=== PATIENT | male | born 1995 | race African-American/Black ===

== ENCOUNTER 2018-02-03 20:09 | Emergency (ER) | payer SELFPAY ==
[2018-02-03 20:18] VITALS: RESP 18
[2018-02-03] MEDS ORDERED: ACETAMINOPHEN TAB 500 MG TAB PO STA (20:27)
--- NOTE | 2018-02-03 20:33 | ED ---
URI HPI - General Chief Complaint: Upper Respiratory Infection Stated Complaint: lightheaded/fever/sore throat Time Seen by Provider: 02/03/18 20:20 Source: patient, RN notes reviewed Mode of arrival: ambulatory Limitations: no limitations - History of Present Illness Initial Comments: This is a 22-year-old male who presents to the emergency department with chief complaint of sore throat and fever. Patient states that he has been feeling feverish since Thursday. He states that his throat feels dry. He also admits to a nonproductive cough and chills. Patient states he is a current every day smoker. Denies any medical problems, current medications or allergies to medications. Denies chest pain or shortness of breath, dysuria or hematuria, diarrhea or constipation. - Related Data Home Medications Medication Instructions Recorded Confirmed No Known Home Medications [No 02/03/18 02/03/18 Known Home Medications] Allergies Allergy/AdvReac Type Severity Reaction Status Date / Time No Known Allergies Allergy Verified 02/03/18 20:57 Review of Systems ROS Statement: Those systems with pertinent positive or pertinent negative responses have been documented in the HPI. ROS Other: All systems not noted in ROS Statement are negative. Past Medical History Past Medical History: No Reported History History of Any Multi-Drug Resistant Organisms: None Reported Past Surgical History: Orthopedic Surgery Past Psychological History: No Psychological Hx Reported Smoking Status: Current every day smoker Past Alcohol Use History: Rare Past Drug Use History: Marijuana General Exam - General Exam Comments Initial Comments: General: Awake and alert, well-developed; in no apparent distress. Low-grade temperature at 100.1. Resting comfortably on ED stretcher. HEENT: Head atraumatic, normocephalic. Pupils are equal, round and reactive to light. Extraocular movements intact. Oropharynx moist with mild erythema. No tonsillar enlargement or exudates noted. Neck: Supple. Normal ROM. Cardiovascular: Regular rate and rhythm. No murmurs, rubs or gallops. Chest symmetrical. Respiratory: Lungs clear to auscultation bilaterally. No wheezes, rales or rhonchi. Normal respiratory effort with no use of accessory muscles. Musculoskeletal: Normal ROM, no tenderness bilateral upper and lower extremities. Ambulating normally. Skin: [place], warm and dry without rashes or lesions. Neurological: Alert and oriented x3. CN II-XII grossly intact. Speech is fluent and answers are appropriate. No focal neuro deficits. Psychiatric: Normal mood and affect. No overt signs of depression or anxiety noted. Limitations: no limitations Course Vital Signs 02/03/18 20:16 Temperature 100.1 F H Pulse Rate 111 H Respiratory 18 Rate Blood Pressure 145/95 O2 Sat by Pulse 97 Oximetry Medical Decision Making - Medical Decision Making This is a 22-year-old male who presented to the emergency department for evaluation of fever and sore throat. On presentation, patient had a low-grade temperature 100.1 with a heart rate of 111. Given tylenol. Patient was tested for influenza and strep and both were negative. A chest x-ray was obtained which also revealed no acute abnormalities. Patient vital signs are stable and he is in no acute distress. Likely suffering from a viral upper respiratory infection. Patient will be discharged home with her condition to follow-up with his primary care provider. Recommended rest, increase fluid intake and supportive care. Patient is in agreement with plan and voices understanding. All questions were answered. - Lab Data Lab Results 02/03/18 02/03/18 Range/Units 20:18 20:18 Influenza Type A RNA Not Detected (Not Detectd) Influenza Type B (PCR) Not Detected (Not Detectd) Group A Strep Rapid Negative (Negative) - Radiology Data Radiology results: report reviewed Chest x-ray impression: No acute process. Disposition Clinical Impression: Upper respiratory infection Disposition: HOME SELF-CARE Condition: Good Instructions: Upper Respiratory Infection (ED) Additional Instructions: Please rest and increase fluid intake. Please follow up with primary care provider within 1-2 days. Return to emergency department if symptoms should worsen or any concerns arise. Referrals: None,Stated [Primary Care Provider] - 1-2 days Time of Disposition: 21:35
--- NOTE | 2018-02-03 21:24 | XR ---
EXAMINATION: XR chest 2V DATE AND TIME: 02/03/2018 8:38 PM ORDERING PROVIDER: Jasmin Salinas CLINICAL INDICATION: cough and fever TECHNIQUE: PA and lateral COMPARISON: None. DESCRIPTION: The lungs are clear. The pleural spaces are negative. The cardiac silhouette is not enlarged. The mediastinal and pleural silhouettes are unremarkable. The skeletal structures are intact without focal findings. The overlying soft tissues are prominent.. IMPRESSION: NO ACUTE PROCESS.
[2018-02-03 21:59] VITALS: BP 157/69; PULSE 68; TEMP 99
== END 2018-02-03 21:59 | disposition home or self-care (01) ==
LOC: EC 20:09
DX: J06.9 Acute upper respiratory infection, unspecified (principal); F17.200 Nicotine dependence, unspecified, uncomplicated
CPT/HCPCS: 71046; 87081; 87430; 87502; 99283

== ENCOUNTER 2019-07-31 20:50 | Emergency (ER) | payer OTHER ==
[2019-07-31 20:54] VITALS: TEMP 99.1
--- NOTE | 2019-07-31 21:22 | XR ---
EXAMINATION TYPE: XR chest 2V DATE OF EXAM: 07/31/2019 COMPARISON: Chest x-ray February 03, 2018 HISTORY: Copy congestion for one week. TECHNIQUE: Frontal and lateral views of the chest are obtained. FINDINGS: Some elevation and eventration anterior aspect right hemidiaphragm is noted. There is no fo mateusz air space opacity, pleural effusion, or pneumothorax seen. The cardiac silhouette size is within normal limits. The osseous structures are intact. IMPRESSION: No suspicious acute infiltrate.
[2019-07-31 21:30] VITALS: BP 171/80; PULSE 86; RESP 18
--- NOTE | 2019-07-31 21:35 | ED ---
General Adult HPI - General Chief complaint: Upper Respiratory Infection Stated complaint: Cough Time Seen by Provider: 07/31/19 20:56 Source: patient, RN notes reviewed Mode of arrival: ambulatory Limitations: no limitations - History of Present Illness Initial comments: 24-year-old male without any past medical history presents to the emergency department specifically for a work note. Patient has had a cough for about a week. States he had a fever earlier today. Patient denies history of asthma. Denies any shortness of breath or chest pain. Does admit to mild congestion, denies sore throat. Patient states he did not go to work today and his work is making him get a note. Patient has no other complaints at this time including shortness of breath, chest pain, abdominal pain, nausea or vomiting, headache, or visual changes. - Related Data Previous Rx's Medication Instructions Recorded Azithromycin [Zithromax Z-pack] 250 mg PO DIRECTED #6 tab 07/31/19 Allergies Allergy/AdvReac Type Severity Reaction Status Date / Time No Known Allergies Allergy Verified 07/31/19 20:54 Review of Systems ROS Statement: Those systems with pertinent positive or pertinent negative responses have been documented in the HPI. ROS Other: All systems not noted in ROS Statement are negative. Past Medical History Past Medical History: No Reported History History of Any Multi-Drug Resistant Organisms: None Reported Past Surgical History: Orthopedic Surgery Past Psychological History: No Psychological Hx Reported Smoking Status: Current every day smoker Past Alcohol Use History: Rare Past Drug Use History: Marijuana General Exam Limitations: no limitations General appearance: alert, in no apparent distress Head exam: Present: atraumatic, normocephalic, normal inspection Eye exam: Present: normal appearance, PERRL, EOMI. Absent: scleral icterus, conjunctival injection, periorbital swelling ENT exam: Present: normal exam, normal oropharynx, mucous membranes moist, TM's normal bilaterally, normal external ear exam Neck exam: Present: normal inspection, full ROM. Absent: tenderness, meningismus, lymphadenopathy Respiratory exam: Present: normal lung sounds bilaterally. Absent: respiratory distress, wheezes, rales, rhonchi, stridor Cardiovascular Exam: Present: regular rate, normal rhythm, normal heart sounds. Absent: systolic murmur, diastolic murmur, rubs, gallop, clicks Neurological exam: Present: alert Course Vital Signs 07/31/19 07/31/19 20:51 21:30 Temperature 99.1 F Pulse Rate 95 86 Respiratory 20 18 Rate Blood Pressure 189/103 171/80 O2 Sat by Pulse 99 96 Oximetry Procedures - Smoking Cessation Time Spent Discussing Smoking Cessation w/Patient (Minutes): 3 Patient Acknowledges Need for Cessation: Yes Medical Decision Making - Medical Decision Making 24-year-old male presents for cough. Patient has had a cough for about a week. Subjective fevers earlier today. No sore throat but does admit to mild congestion. Patient presents specifically for a work note. Exam is unremarkable. Vitals are stable although patient initially hypertensive. This was repeated and improved however patient will follow up with primary care about this. No history of asthma. Chest x-ray negative for pneumonia. However given the symptom duration greater than one week with subjective fevers he will be treated for atypical pneumonia with azithromycin. He will return if he has any worsening symptoms. Disposition Clinical Impression: Cough Disposition: HOME SELF-CARE Condition: Good Instructions (If sedation given, give patient instructions): Upper Respiratory Infection (ED) Additional Instructions: Please take him back as directed. Please follow-up with primary care in 1-2 days. Return to the emergency department if you have any worsening symptoms. Prescriptions: Azithromycin [Zithromax Z-pack] 250 mg PO DIRECTED #6 tab Is patient prescribed a controlled substance at d/c from ED?: No Referrals: Frederic Whittington MD [REFERRING] - 1-2 days Time of Disposition: 21:34
== END 2019-07-31 21:42 | disposition home or self-care (01) ==
LOC: EC 20:50
DX: R05 Cough (principal); R50.9 Fever, unspecified; F17.200 Nicotine dependence, unspecified, uncomplicated; Z71.6 Tobacco abuse counseling
CPT/HCPCS: 71046; 99283

== ENCOUNTER 2019-08-26 22:59 | Emergency (ER) | payer OTHER ==
[2019-08-26] MEDS ORDERED: MORPHINE SULFATE 4 MG/ML SYRINGE IV STA (23:39)
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
[2019-08-27 00:03] LABS: Basophils # (A) 0.1 k/uL (0-0.2); Basophils % (A) 1 %; Eosinophils # (A) 0.2 k/uL (0-0.7); Eosinophils % (A) 2 %; HCT 47.7 % (39.0-53.0); HGB 14.7 gm/dL (13.0-17.5); Lymphocytes # (A) 2.4 k/uL (1.0-4.8); Lymphocytes % (A) 28 %; MCH 27.5 pg (25.0-35.0); MCHC 30.8 g/dL (31.0-37.0); MCV 89.5 fL (80.0-100.0); Mean Platelet Volume 6.1; Monocytes # (A) 0.6 k/uL (0-1.0); Monocytes % (A) 7 %; Neutrophils % (A) 59 %; Platelet Count 257 k/uL (150-450); RBC 5.33 m/uL (4.30-5.90); RDW 13.5 % (11.5-15.5); WBC 8.6 k/uL (3.8-10.6)
[2019-08-27 00:12] LABS: ALT 48 U/L (21-72); AST 51 U/L (17-59); African American GFR (CKD) >90 (>60 ml/min/1.73 sqM); Albumin 4.4 g/dL (3.5-5.0); Alcohol <10 mg/dL; Alkaline Phosphatase 68 U/L (38-126); Anion Gap 9 mmol/L; Blood Urea Nitrogen 14 mg/dL (9-20); Calcium 9.3 mg/dL (8.4-10.2); Carbon Dioxide 27 mmol/L (22-30); Chloride 105 mmol/L (98-107); Glucose 97 mg/dL (74-99); Partial Thromboplastin Time 25.6 sec (22.0-30.0); Prothrombin Time 10.4 sec (9.0-12.0); Sodium 141 mmol/L (137-145); Total Bilirubin 0.3 mg/dL (0.2-1.3); Total Protein 7.6 g/dL (6.3-8.2)
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
[2019-08-27 01:18] VITALS: RESP 18
[2019-08-27 01:21] VITALS: BP 147/95; PULSE 71; TEMP 96.7
== END 2019-08-27 01:21 | disposition home or self-care (01) ==
LOC: EC 22:59
DX: R51 Headache (principal); M54.9 Dorsalgia, unspecified; F17.200 Nicotine dependence, unspecified, uncomplicated; Z53.20 Procedure and treatment not carried out because of patient's decision for unspecified reasons; V49.50XA Passenger injured in collision with unspecified motor vehicles in traffic accident, initial encounter; Y93.89 Activity, other specified; Y92.410 Unspecified street and highway as the place of occurrence of the external cause
CPT/HCPCS: 99284; 36415; 93005; 80053; 84484; 85025; 85610; 85730; 80320; 72125; 70450; 71260; 74177; Q9967

== ENCOUNTER 2022-08-05 20:42 | Emergency (ER) | payer OTHER ==
[2022-08-05 20:58] VITALS: BP 164/102; PULSE 88; RESP 18; TEMP 99.4
[2022-08-05] MEDS ORDERED: predniSONE 50 MG TAB PO STA (23:20)
[2022-08-05] MEDS ORDERED: ACETAMINOPHEN TAB 500 MG TAB PO STA (23:20)
--- NOTE | 2022-08-05 23:32 | ED ---
Extremity Problem HPI - General Chief complaint: Extremity Problem,Nontraumatic Stated complaint: leg & hip pain Time Seen by Provider: 08/05/22 23:11 Source: patient, RN notes reviewed Mode of arrival: ambulatory Limitations: no limitations - History of Present Illness Initial comments: his is a pleasant 27-year-old male comes to the ER complaining of low back pain with radiation to left leg which is exacerbated by movement, alleviated by rest, no problems with bowel when she urination. No fever or chills. No direct trauma. Patient states seemed to start in the back and that resolved but now he is getting some shooting pains into the posterior lateral aspect of the left leg at times. No pain in the foot. He will ambulate without difficulty. No headache, no fever or chills, no changes in vision or hearing, no sore throat or difficulty with speech, no neck pain, no chest pain or shortness of breath, no abdominal pain, no nausea or vomiting, no changes in urination or bowel movements, no numbness or tingling, no extremity pain, no skin rashes or lesions. Past medical, surgical, social, and family history reviewed.T - Related Data Previous Rx's Medication Instructions Recorded Amoxicillin 875 mg PO Q12HR 10 Days #20 tablet 02/21/22 Acetaminophen Tab [Tylenol Tab] 500 mg PO Q6H PRN #24 tablet 08/06/22 Cyclobenzaprine [Flexeril] 10 mg PO TID PRN #20 tab 08/06/22 methylPREDNISolone Dose Pack 4 mg PO DIRECTED #21 tab 08/06/22 [Medrol Dose Pack] Allergies Allergy/AdvReac Type Severity Reaction Status Date / Time No Known Allergies Allergy Verified 08/05/22 20:58 Review of Systems ROS Statement: Those systems with pertinent positive or pertinent negative responses have been documented in the HPI. ROS Other: All systems not noted in ROS Statement are negative. Past Medical History Past Medical History: No Reported History History of Any Multi-Drug Resistant Organisms: None Reported Past Surgical History: Orthopedic Surgery Past Psychological History: No Psychological Hx Reported Smoking Status: Current every day smoker Past Alcohol Use History: Rare Past Drug Use History: Marijuana General Exam - General Exam Comments Initial Comments: Patient in no significant distress. Does not appear to be ill or toxic. Noted to be hypertensive. Limitations: no limitations General appearance: obese Head exam: Present: atraumatic, normocephalic, normal inspection Eye exam: Present: normal appearance, PERRL, EOMI. Absent: scleral icterus, conjunctival injection, periorbital swelling ENT exam: Present: normal exam, mucous membranes moist Neck exam: Present: normal inspection, full ROM. Absent: tenderness, meningismus, lymphadenopathy Respiratory exam: Present: normal lung sounds bilaterally. Absent: respiratory distress, wheezes, rales, rhonchi, stridor Cardiovascular Exam: Present: regular rate, normal rhythm, normal heart sounds. Absent: systolic murmur, diastolic murmur, rubs, gallop, clicks GI/Abdominal exam: Present: soft, normal bowel sounds. Absent: distended, tenderness, guarding, rebound, rigid Extremities exam: Present: normal inspection, full ROM, normal capillary refill. Absent: tenderness, pedal edema, joint swelling, calf tenderness Back exam: Present: normal inspection, full ROM (With some discomfort), other (Straight leg raise is negative bilaterally.). Absent: tenderness, CVA tenderness (R), CVA tenderness (L), muscle spasm, paraspinal tenderness, vertebral tenderness, rash noted Neurological exam: Present: alert, oriented X3, CN II-XII intact, normal gait, reflexes normal, other (Great toe extensor strength is normal.). Absent: abnormal gait, motor sensory deficit Psychiatric exam: Present: normal affect, normal mood Skin exam: Present: warm, dry, intact, normal color. Absent: rash Course Vital Signs 08/05/22 20:56 Temperature 99.4 F Pulse Rate 88 Respiratory 18 Rate Blood Pressure 164/102 O2 Sat by Pulse 96 Oximetry Medical Decision Making - Medical Decision Making patient noted to have hypertension but is asymptomatic regarding this. No chest pain. No shortness breath. No edema. No problems with bowel much urination. Given the patient's symptomology, lumbar radiculopathy is he most likely culprit. Will treat with corticosteroids. Acetaminophen. Muscle relaxers. We'll have the patient follow-up with his regular physician. I also gave follow-up with the back specialist if needed. Patient voices understanding. I told the patient that he needs to have his blood pressure monitored and rechecked. We also discussed smoking cessation. Patient was told to return to the ER for any signs or symptoms worsen. Told to return immediately if any other problems arise. All questions answered. Treatment plan discussed. Patient in agreement Every effort has been made to ensure accuracy of this dictation. However, due to the limitations of electronic medical records and dictation devices, errors in charting still occur. Supervising physician Dr. Nguyen - Radiology Data Radiology results: report reviewed (Degenerative changes noted), image reviewed Disposition Clinical Impression: Acute left lumbar radiculopathy, DJD (degenerative joint disease), lumbar, Cigarette smoker, Elevated blood pressure reading Disposition: HOME SELF-CARE Condition: Good Instructions (If sedation given, give patient instructions): How to Stop Smoking (ED), Lumbar Radiculopathy (ED), Hypertension (ED) Additional Instructions: Follow-up with your regular physician as directed. Return to the ER immediately if any symptoms worsen, new symptoms arise, or any other problems develop. Avoid heavy lifting or twisting. Follow up with the back specialist as discussed Prescriptions: Cyclobenzaprine [Flexeril] 10 mg PO TID PRN #20 tab PRN Reason: Spasms methylPREDNISolone Dose Pack [Medrol Dose Pack] 4 mg PO DIRECTED #21 tab Acetaminophen Tab [Tylenol Tab] 500 mg PO Q6H PRN #24 tablet PRN Reason: Pain Is patient prescribed a controlled substance at d/c from ED?: No Referrals: Frederic Whittington MD [Primary Care Provider] - 1-2 days Pedrito Mitchell DO [Doctor of Osteopathic Medicine] - 08/13/22 Time of Disposition: 00:38
--- NOTE | 2022-08-05 23:55 | XR ---
EXAMINATION TYPE: XR lumbar spine 2 or 3V DATE OF EXAM: 08/05/2022 COMPARISON: NONE HISTORY: Back pain TECHNIQUE: 3 views FINDINGS: The lumbar vertebra have normal alignment. There is anterior spurring in the upper lumbar s pine. No compression fracture. Posterior elements are intact. No significant disc space narrowing. Sa croiliac joints are intact IMPRESSION: Degenerative anterior spurring in the upper lumbar spine. No fracture.
== END 2022-08-06 00:47 | disposition home or self-care (01) ==
LOC: EC 20:42
DX: M54.16 Radiculopathy, lumbar region (principal); M54.50 Low back pain, unspecified; M19.90 Unspecified osteoarthritis, unspecified site; F17.200 Nicotine dependence, unspecified, uncomplicated; I10 Essential (primary) hypertension
CPT/HCPCS: 99283 ×2; 72100; J7512